=== PATIENT | female | born 1955 | race African-American/Black ===

== ENCOUNTER 2017-07-18 01:30 | Emergency (ER) | payer MEDICAID, OTHER ==
[~2017-07-18] VITALS: Ht 162.6 cm; Wt 118.0 kg
[2017-07-18 06:54] VITALS: BP 151/89
== END 2017-07-18 06:54 | disposition home or self-care (01) ==
LOC: ER 01:48
DX: H57.8 Other specified disorders of eye and adnexa (principal); I10 Essential (primary) hypertension; Z90.49 Acquired absence of other specified parts of digestive tract; Z98.51 Tubal ligation status; Z88.1 Allergy status to other antibiotic agents; Z88.6 Allergy status to analgesic agent
CPT/HCPCS: 99283; Z7610

== ENCOUNTER 2023-09-13 11:18 | Emergency (ER) | payer MEDICAID, MEDICARE ==
[~2023-09-13] VITALS: Ht 167.6 cm; Wt 113.0 kg
[2023-09-13 11:20] VITALS: BP 185/95; PULSE 65; RESP 16; TEMP 98.6; O2SAT 98
[2023-09-13 12:18] LABS: BASOPHILS % 0.9 % (0.0-2.0); EOSINOPHILS % 2.8 % (0.0-5.0); HEMATOCRIT. 40.6 % (36.0-48.0); HEMOGLOBIN. 13.4 g/dL (12.0-16.0); MEAN CORPUSCULAR HEMOGLOBIN 26.8 pg (28.0-32.0); MEAN CORPUSCULAR VOLUME 81.2 fL (81.0-99.0); MEAN PLATELET VOLUME 8.2 fl (7.4-10.4); NEUTROPHILS % 64.3 % (40.0-76.0); PLATELET 264 x1000/uL (130-400); RED CELL DISTRIBUTION WIDTH 15.5 % (11.6-14.6); WHITE BLOOD COUNT 6.2 x1000/uL (4.5-11.0)
[2023-09-13 12:39] LABS: ALANINE AMINOTRANSFERASE < 7 IU/L (10-49); ALBUMIN 4.1 g/dL (3.2-4.8); ASPARTATE AMINOTRANSFERASE 15 IU/L (<34); BILIRUBIN TOTAL 0.4 mg/dL (0.1-1.0); CALCIUM 8.9 mg/dL (8.7-10.4); CARBON DIOXIDE 27 mEq/L (21-32); CHLORIDE 107 mEq/L (98-107); GLUCOSE 110 mg/dL (70-105); POTASSIUM 4.3 mEq/L (3.5-5.1); PROTEIN TOTAL 7.2 g/dL (6.0-8.3); SODIUM 140 mEq/L (136-145); UREA NITROGEN BLOOD 8 mg/dL (9-23)
[2023-09-13 13:53] LABS: CLARITY URINE CLEAR (CLEAR); COLOR URINE YELLOW (YELLOW); GLUCOSE URINE NEGATIVE (NEGATIVE); KETONES URINE NEGATIVE (NEGATIVE); NITRITE URINE NEGATIVE (NEGATIVE); OCCULT BLOOD URINE NEGATIVE (NEGATIVE); PROTEIN URINE TRACE (NEGATIVE); SPECIFIC GRAVITY URINE 1.014 (1.005-1.030)
[2023-09-13 13:54] LABS: LEUKOCYTE ESTERASE URINE NEGATIVE (NEGATIVE); UROBILINOGEN URINE 0.2 E.U./dL (0.2-1.0)
[2023-09-13 14:10] LABS: SQUAMOUS EPITHELIAL CELL URINE 1+ /lpf (RARE/1+)
[2023-09-13 14:11] LABS: BACTERIA URINE 1+; RBC URINE 0-2 /hpf (0-2); WBC URINE 0-2 /hpf (0-2)
[2023-09-13] MEDS ORDERED: CYCL10TA21 MT (14:23)
[2023-09-13] MEDS ORDERED: IBUP-2029 MT (14:23)
== END 2023-09-13 14:40 | disposition home or self-care (01) ==
LOC: ER 11:18
DX: M54.50 Low back pain, unspecified (principal); Z88.0 Allergy status to penicillin; Z88.5 Allergy status to narcotic agent; Z98.890 Other specified postprocedural states; Z90.49 Acquired absence of other specified parts of digestive tract; Z98.51 Tubal ligation status
CPT/HCPCS: 36415; 74176; 80053; 81003; 85025; 99284